=== PATIENT | female | born 1960 | race Caucasian/White ===

== ENCOUNTER 2017-05-12 19:44 | Emergency (ER) | payer OTHER ==
[2017-05-12 19:54] VITALS: BP 115/68
[2017-05-12] MEDS ORDERED: diphenhydrAMINE HCL 50 MG CAPSULE PO ONE ×2 (20:05→20:11)
[2017-05-12] MEDS ORDERED: FAMOTIDINE 20 MG TABLET PO ONE (20:06)
[2017-05-12] MEDS ORDERED: DEXAMETHASONE SOD PHOSPHATE 10 MG/ML VIAL IM ONE (20:08)
[2017-05-12] MEDS ORDERED: FAMOTIDINE 20 MG TABLET ONE (20:11)
[2017-05-12] MEDS ORDERED: DEXAMETHASONE SOD PHOSPHATE 10 MG/ML VIAL ONE (20:11)
--- NOTE | 2017-05-12 20:23 | ERNOTE ---
Integumentary HPI - Narrative Date of Service: 05/12/17 - General Presenting Symptoms: rash Time Seen by Provider: 05/12/17 20:01 Source: patient, family Exam Limitations: no limitations - Immun/Allergies/Home Medications Immunizations: IMMUNIZATION HX Immunizations Up to Date Yes History of Influenza Vaccine No Hx Pneumococcal Vaccination No Allergies/Adverse Reactions: Allergies Allergy/AdvReac Type Severity Reaction Status Date / Time No Known Allergies Allergy Unverified 05/12/17 19:54 Home Medications: HOME MEDICATIONS Escitalopram Oxalate [Lexapro] 20 mg PO DAILY 05/12/17 [Last Taken Unknown] Gabapentin [Neurontin] 1,800 mg PO 05/12/17 [Last Taken Unknown] HYDROcodone/ACETAMINOPHEN [Hydrocodon-Acetaminophen 5-325] 1 each PO QID PRN [Last Taken Unknown] LORazepam [Ativan] 0.5 mg PO TID PRN 05/12/17 [Last Taken Unknown] Warfarin Sodium [Coumadin] 4 mg PO 05/12/17 [Last Taken Unknown] Warfarin Sodium [Coumadin] 5 mg PO 05/12/17 [Last Taken Unknown] - History of Present Illness Narrative: Abrupt onset of hive like rash after a stressful day. Location: Reports: generalized Quality: Reports: itching Severity: moderate Exposure: Reports: no cause identified, other - States has occurred before likely due to anxiety Modifying Factors - (Improves): Reports: antihistamine, prednisone Modifying Factors - (Worsens): Reports: scratching Associated Symptoms: Reports: rash, hives - Has tried to treat with benadryl in the past but states this is much worse. Review of Systems - Narrative Narrative: Patient states she has had this happen before. However much worse today. Previous providers believes this is related to stress. States today she had severe anxiety and took an ativan. However she did not improve and started becoming very pruitic with a hive type rash. States she has not been outside in weeds today. - Review of Systems Constitutional: Present: no symptoms reported, decreased activity level, other - Very pruitic ENT: Present: no symptoms reported Respiratory: Present: no symptoms reported, other - Denies any wheezing Cardiology: Present: no symptoms reported Gastrointestinal/Abdominal: Present: no symptoms reported Skin: Present: rash, other - Hives Neurological: Present: no symptoms reported Endocrine: Present: no symptoms reported Hematologic/Lymphatic: Present: no symptoms reported Psych: Present: anxiety - Feels better after she took her ativan - Patient's Past Medical History Patient History - Medical: Anxiety, Chronic Pain Patient History - Cardiac/Respiratory: Deep Vein Thrombosis Patient History - Cancer: No Hx of Cancer Patient History - Surgical Procedures: Colonoscopy, T & A, Orthopedic Patient History - Other: None LMP (females 10-50): Menopausal - Social History Living Situations: spouse Abuse History: No History of abuse Psych History: Hx of Anxiety Smoking Status: Never smoker Have you smoked in the past 12 months: No Do you dip or chew tobacco: No Alcohol Use: heavy Drug Use: none - Immunizations Immunizations Up to Date: Yes Hx Pneumococcal Vaccination: No History of Influenza Vaccine: No Physical Exam - Physical Exam General Appearance: Present: wd/wn, alert, anxious, other - Constantly itching skin. Head Exam: Present: normal inspection Ears, Nose, Throat: Present: normal ENT inspection, other - No angioedema symptoms Neck: Present: normal inspection, supple Respiratory: Present: no respiratory distress, normal breath sounds, no accessory muscle use, other - No wheezes. Cardiovascular/Chest: Present: regular rate, rhythm, no murmur Gastrointestinal/Abdominal: Present: normal bowel sounds Neurological Exam: Present: alert, oriented, normal mood/affect, no motor/ sensory deficits Skin Exam: Present: other - Macular/hive type rash extensive from the tops of feet up to the shoulders spread across the body. No papules or vesicles noted. Areas on tops of feet and up int tibia bilateral have solid erythema possibly also from skin irritation from scratching. Patient has a red 1.5cm ring of raised erythema circumpherential around body underneath breasts as well. Otherwise well scattered throughout. Lymphatic Exam: Present: no adenopathy ED Progress - Vital Signs Patient's Vital Signs:: I have reviewed the patient's vital signs. Vital Signs: Vital Signs 05/12/17 19:47 Temperature 36.8 C Pulse Rate 90 Respiratory 18 Rate Blood Pressure 115/68 O2 Sat by Pulse 99 Oximetry - Progress/Reassessment Chief Complaint: Rash Progress:: Improved Progress Note-Subjective: 05/12/17 21:20 Much less pruitic. Hives are improving. States she is much less anxious. Departure Clinical Impression: Pruritic dermatitis - Departure Disposition: Home self-care Condition: Good Instructions: Pruritus Additional Instructions: Symptoms are improving so will discharge you home to continue benadryl 50mg every 6 hrs along with pepcid 20mg daily. Take your lorazepam 2 hrs before needed tomorrow. Any worsening of symptoms, difficulty breathing, tongue swelling, etc. return to ER immediately. Otherwise follow up with family provider in 1-2 days.
[2017-05-12] MEDS ORDERED: LORazepam 1 MG TABLET PO ONE (20:41)
[2017-05-12] MEDS ORDERED: LORazepam 1 MG TABLET ONE (20:43)
== END 2017-05-12 21:33 | disposition home or self-care (01) ==
LOC: ER 19:44
DX: L30.8 Other specified dermatitis (principal); F41.9 Anxiety disorder, unspecified